=== PATIENT | female | born 1990 | race Caucasian/White ===

== ENCOUNTER 2016-04-25 10:18 | Outpatient (RCR) | payer OTHER ==
[~2016-04-25] VITALS: Ht 160 cm; Wt 70.3 kg
[~2016-04-25 10:18] MED LIST: IRON325 MG PO; MOTRIN 800800 MG/TAB PO; PEN-VEE K500 MG PO; PERCOCET 325 MG1 TA2 PO; PRENATAL1 TA1 PO; SYNTHROID0.088 MG/T PO; SYNTHROID0.2 MG/TAB PO
[2016-04-30] MEDS ORDERED: IBU800 M1 PO (08:30)
[2016-04-30] MEDS ORDERED: PERCOCET 325 MG1 TA2 PO (08:31)
== END 2016-06-26 | disposition still patient (30) ==
LOC: LDRO
DX: O30.003 Twin pregnancy, unspecified number of placenta and unspecified number of amniotic sacs, third trimester (principal); Z3A.32 32 weeks gestation of pregnancy; Z87.891 Personal history of nicotine dependence

== ENCOUNTER → 2016-07-24 | Outpatient (CLI) | payer OTHER ==
[~2016-07-24] MED LIST changes: +IBU800 M1 PO
== END ==
LOC: MC.RAD 12:58
DX: N63 Unspecified lump in breast (principal)

== ENCOUNTER → 2016-09-01 | Outpatient (CLI) | payer OTHER | LOC: COL.LAB 16:10 | DX: N61.1 Abscess of the breast and nipple (principal) ==

== ENCOUNTER → 2016-11-10 | Outpatient (CLI) | payer OTHER | LOC: COL.LAB 18:11 | DX: N61.1 Abscess of the breast and nipple (principal) ==

== ENCOUNTER → 2016-11-27 | Outpatient (CLI) | payer OTHER | LOC: MC.RAD 07:30 | DX: N64.89 Other specified disorders of breast (principal) ==

== ENCOUNTER → 2017-02-10 | Outpatient (CLI) | payer OTHER | LOC: COL.RAD 02-06 09:00 | DX: M51.37 Other intervertebral disc degeneration, lumbosacral region (principal) ==

== ENCOUNTER 2017-06-10 10:32 | Day surgery (SDC) | payer OTHER ==
[~2017-06-10] VITALS: Ht 162.6 cm; Wt 64.1 kg
[2017-06-10 11:02] VITALS: BP 123/72; PULSE 77; TEMP 98.1
[2017-06-10] MEDS ORDERED: SYNTHROID0.088 MG/T PO (11:10)
[2017-06-10] MEDS ORDERED: ADVIL200 MG PO (11:11)
[2017-06-10] MEDS ORDERED: NORCO 325 MG-51 TAB PO (13:23)
[2017-06-10] MEDS ORDERED: AMOXICILLIN 8751 TAB PO (13:23)
[2017-06-10 13:24] VITALS: BP 110/67; PULSE 75; TEMP 98
[2017-06-10 13:40] VITALS: BP 114/75; PULSE 73
[2017-06-10 13:55] VITALS: BP 109/71; PULSE 60
== END 2017-06-10 14:25 | disposition home or self-care (01) ==
LOC: SDCO 10:32
DX: N64.0 Fissure and fistula of nipple (principal); N60.42 Mammary duct ectasia of left breast; F17.210 Nicotine dependence, cigarettes, uncomplicated; E06.3 Autoimmune thyroiditis; Z82.49 Family history of ischemic heart disease and other diseases of the circulatory system; G43.909 Migraine, unspecified, not intractable, without status migrainosus
CPT/HCPCS: J0690; J2704; J3010; J7120

== ENCOUNTER → 2018-08-16 | Outpatient (CLI) | payer OTHER ==
[~2018-08-16] MED LIST changes: +ADVIL200 MG PO; +AMOXICILLIN 8751 TAB PO; +NORCO 325 MG-51 TAB PO
== END ==
LOC: COL.RAD 09:32
DX: R10.11 Right upper quadrant pain (principal)

== ENCOUNTER → 2020-01-13 | Outpatient (CLI) | payer OTHER | LOC: ZCOL.LAB 15:46 | DX: N61.1 Abscess of the breast and nipple (principal) ==

== ENCOUNTER 2020-03-09 05:43 | Day surgery (SDC) | payer OTHER ==
[~2020-03-09] VITALS: Ht 162.6 cm; Wt 69.8 kg
[2020-03-09] MEDS ORDERED: SYNTHROID0.075 MG/T PO (06:17)
[2020-03-09 06:18] VITALS: BP 124/75; PULSE 72; TEMP 98.2
[2020-03-09 08:05] VITALS: BP 104/59; PULSE 71; TEMP 96.9
--- NOTE | 2020-03-09 08:05 | NUR ---
Patient arrives to [facility] [place] [address] via cart, accompanied by DRY MOLDER Flori. Bedside report is received. Patient is sleepy, but easily awakens to voice. She denies pain or nausea. She has a clean/dry/intact dressing on her operative site. Her spouse is at the bedside. Monitoring is applied - VSS and WNL on room air. Lights are dimmed for comfort, patient goes back to sleep. Call light in reach. Will continue to monitor.
[2020-03-09] MEDS ORDERED: NORCO 325 MG-51 TAB PO (08:06)
[2020-03-09 08:20] VITALS: BP 106/55; PULSE 54
--- NOTE | 2020-03-09 08:20 | NUR ---
Patient is awake, resting comfortably in room. She denies pain, nausea, or need. She is offered something to eat/drink. She requests and receives juice and a muffin. She is sitting up in bed, dressing remains clean/dry/intact.
[2020-03-09 08:35] VITALS: BP 109/64; PULSE 58
--- NOTE | 2020-03-09 08:35 | NUR ---
VSS on room air. Patient tolerated PO well. She denies pain, nausea, or other needs.
[2020-03-09 08:50] VITALS: BP 98/60; PULSE 52
--- NOTE | 2020-03-09 08:50 | NUR ---
VSS on room air. Denies pain, nausea, or need.
[2020-03-09 09:05] VITALS: BP 111/66; PULSE 60
--- NOTE | 2020-03-09 09:05 | NUR ---
Patient requested to use the restroom at 0855. She ambulates to the restroom, voids, and returns to room. Gait was steady. She denies dizziness, light headedness, or other symptoms. VS on return to room are WNL.
--- NOTE | 2020-03-09 09:17 | NUR ---
Patient has met discharge criteria. Discharge instructions are discussed, denies any questions, and verbalizes understanding. PIV is removed with catheter intact and hemostasis achieved. She changes to her clothing independently. She is escorted to the exit via wheelchair. She is discharged to home with ride in private vehicle at 0917.
== END 2020-03-09 09:17 | disposition home or self-care (01) ==
LOC: SDCO 05:43
DX: N60.42 Mammary duct ectasia of left breast (principal); N61.1 Abscess of the breast and nipple; E06.3 Autoimmune thyroiditis; Z90.710 Acquired absence of both cervix and uterus; Z83.3 Family history of diabetes mellitus; Z80.1 Family history of malignant neoplasm of trachea, bronchus and lung; Z80.0 Family history of malignant neoplasm of digestive organs; Z82.3 Family history of stroke; F17.210 Nicotine dependence, cigarettes, uncomplicated; J45.909 Unspecified asthma, uncomplicated; Z20.828 Contact with and (suspected) exposure to other viral communicable diseases
CPT/HCPCS: J0690; J1100; J1885; J2250; J2405; J2704; J3010; J7120

== ENCOUNTER → 2020-08-27 | Outpatient (CLI) | payer OTHER ==
[~2020-08-27] MED LIST changes: +SYNTHROID0.075 MG/T PO
== END ==
LOC: COL.RAD
DX: E04.2 Nontoxic multinodular goiter (principal); R13.10 Dysphagia, unspecified

== ENCOUNTER → 2021-02-22 | Outpatient (CLI) | payer OTHER | LOC: MC.RAD 08:51 | DX: N63.11 Unspecified lump in the right breast, upper outer quadrant (principal) ==